=== PATIENT | male | born 1985 | race Two or more races ===

== ENCOUNTER 2023-06-01 13:30 | Emergency (ER) | payer SELFPAY ==
[~2023-06-01] VITALS: Ht 167.6 cm; Wt 113.0 kg
[2023-06-01 14:27] VITALS: BP 120/74; PULSE 70; RESP 18; TEMP 98; O2SAT 97
[2023-06-01] MEDS ORDERED: CEPH500C PO (15:18)
[2023-06-01] MEDS ORDERED: PROM1SOL4 PO (15:18)
== END 2023-06-01 15:41 | disposition home or self-care (01) ==
LOC: ER 13:30
DX: J03.90 Acute tonsillitis, unspecified (principal); E66.01 Morbid (severe) obesity due to excess calories; Z68.41 Body mass index [BMI] 40.0-44.9, adult; Z79.899 Other long term (current) drug therapy